=== PATIENT | female | born 1945 | race Caucasian/White ===

== ENCOUNTER → 2017-05-11 | Outpatient (CLI) | payer OTHER ==
[~2017-05-11] VITALS: Ht 157.5 cm; Wt 88.0 kg
[~2017-05-11] MED LIST: ALLERCLEAR D-21 EACH PO; ALLERGY RELIEF10 M1 PO; BACTROBAN OINTM22 GM TP; BLOOD PRESSURE PO; CALCIUM 600 +1 EAC4 PO; CLEOCIN300 MG PO; CYCLOBENZAPRINE10 MG PO; FISH OIL 1,0001 EAC7 PO; FOSAMAX70 M1 PO; Flora-Q,Risaquad PO; GABAPENTIN100 MG PO; HYDROCHLOROTH12.5 M3 PO; HYDROCHLOROTHIA25 MG PO; INDAPAMIDE2.5 MG PO; LISINOPRIL20 MG PO; LYSINE1000 MG PO; MECLIZINE HCL25 MG PO; MELOXICAM7.5 MG PO; METHOCARBAMOL500 MG PO; METOPROLOL SUC100 MG PO; METOPROLOL TAR100 MG PO; NITROSTAT0.4 MG SL; NORVASC2.5 MG PO; ONE DAILY1 EAC3 PO; POTASSIUM GLUCO90 MG PO; POTASSIUM GLUCONATE PO; POTASSIUM-9999 MG PO; PREMARIN VAGI42.5 GM VG; RECLAST5 MG/100 M IV; Toprol XL PO; Tylenol Regular Stre PO; Ultram PO; VITAMIN D31000 UNIT PO; VITAMIN E400 UNI3 PO; VITAMIN E400 UNIT PO; ZESTRIL,PRINIVIL5 MG PO; Zestril,Prinivil PO
[2017-05-11 10:24] VITALS: BP 158/82
== END | disposition home or self-care (01) ==
LOC: IVINF 09:41
DX: M81.0 Age-related osteoporosis without current pathological fracture (principal)
CPT/HCPCS: 96365; J3489